=== PATIENT | female | born 1955 ===

== ENCOUNTER 2025-07-29 07:00 | Day surgery (SDC) | payer OTHER ==
[2025-07-29 12:10] LABS: INR 1.1
[2025-07-29] MEDS ORDERED: DIPHENHYDRAMINE HCL 50 MG/ML VIAL 1ML IV ONE (13:45)
[2025-07-29] MEDS ORDERED: fentaNYL CITRATE 50 MCG/ML AMPUL IV PUSH ONE (13:45)
[2025-07-29] MEDS ORDERED: MIDAZOLAM HCL 2 MG/2 ML VIAL IV ONE (13:45)
== END 2025-07-29 15:20 | disposition home or self-care (01) ==
LOC: AMB-ENDOS 07:00
PROVIDERS: ATTEND Surgery
DX: D12.5 Benign neoplasm of sigmoid colon (principal); K62.1 Rectal polyp; Z91.041 Radiographic dye allergy status; K63.5 Polyp of colon

== ENCOUNTER 2025-09-22 12:45 | Inpatient (IN) | payer OTHER ==
[~2025-09-22] VITALS: Ht 160 cm; Wt 117.9 kg
[2025-09-22] MEDS ORDERED: TOPROL XL50 M1 PO (14:16)
[2025-09-22] MEDS ORDERED: XARELTO20 MG PO (14:16)
[2025-09-22] MEDS ORDERED: ARTHRITIS PAIN650 M2 PO (14:17)
[2025-09-22] MEDS ORDERED: LIPITOR20 MG PO (14:17)
[2025-09-22] MEDS ORDERED: HORIZANT300 MG PO (14:17)
[2025-09-26] MEDS ORDERED: CEFTRIAXONE SODIUM 2,000 MG VIAL ONE (12:37)
[2025-09-26] MEDS ORDERED: METRONIDAZOLE/SODIUM CHLORIDE 500 MG/100 ML PIGGYBACK IV ONE (12:37)
[2025-09-26] MEDS ORDERED: LIDOCAINE HCL 1%/EPINEPHRINE 20ML VIAL IJ ONE (16:45)
[2025-09-26] MEDS ORDERED: BUPIVACAINE HCL/PF 0.25% 30ML VIAL InF ONE (16:45)
[2025-09-26] MEDS ORDERED: CHLORHEXIDINE GLUCONATE 120 ML BOTTLE TOP ONE (16:45)
[2025-09-26] MEDS ORDERED: HEMOSTATIC MATRIX 1 KIT KIT TOP ONE (16:45)
[2025-09-26] MEDS ORDERED: OxyCODONE HCL 5 MG TABLET (ROXICODONE) PO PRN (17:30)
[2025-09-26] MEDS ORDERED: RINGERS SOLUTION,LACTATED 1,000 ML IV SCH (17:30)
[2025-09-26] MEDS ORDERED: DEXTROSE 50 % IN WATER 0.5 G/ML DISP.SYRIN IV PRN (17:30)
[2025-09-26] MEDS ORDERED: MORPHINE SULFATE 4 MG/ML CARTRIDGE IV PRN (17:30)
[2025-09-26] MEDS ORDERED: ONDANSETRON HCL 2 MG/ML VIAL IV PRN (17:30)
[2025-09-26] MEDS ORDERED: AMIODARONE HCL 900 MG in DEXTROSE 5 % IN WATER 500 ML IV SCH (18:30)
[2025-09-26] MEDS ORDERED: AMIODARONE HCL 50 MG/ML AMPUL IV ONE (18:30)
[2025-09-26] MEDS ORDERED: SUGAMMADEX SODIUM 200 MG/2 ML VIAL IV ONE (18:45)
[2025-09-26] MEDS ORDERED: ACETAMINOPHEN 500 MG GEL..CAP PO SCH (20:00)
[2025-09-26 20:10] LABS: BUN CREA RATIO 13.0 (7.0-25.0); CREATININE SERUM 0.6 mg/dL (0.55-1.02); GFR 98.55; GLUCOSE FASTING 132.0 mg/dL (65-100); OSMOLALITY SERUM 285.0 MOSM/KG (275-295)
[2025-09-26] MEDS ORDERED: FAMOTIDINE/PF 20 MG/2 ML VIAL IV PUSH SCH (21:00)
[2025-09-26] MEDS ORDERED: FAMOTIDINE/PF 20 MG/2 ML VIAL ONE (22:26)
[2025-09-26 23:13] LABS: BASO % 0.3 % (0.1-1.2); EOS # 0.04 (0.04-0.54); EOS % 0.3 % (0.7-7.0); LYMPH # 1.32 (1.18-3.74); LYMPH % 9.4 % (19.3-53.1); MEAN PLATELET VOLUME 12.90 fl (9.4-12.4); MONO # 1.03 (0.24-0.82); MONO % 7.3 % (4.7-12.5); NEUT # 11.61 (1.56-6.13); NEUT % 82.3 % (34.0-71.1); RED CELL DISTRIBUTION WIDTH 15.1 % (11.6-14.4)
[2025-09-27] MEDS ORDERED: GABAPENTIN 300 MG CAPSULE PO ONE (00:37)
[2025-09-27] MEDS ORDERED: ACETAMINOPHEN 500 MG GEL..CAP PO ONE (00:44)
[2025-09-27] MEDS ORDERED: GABAPENTIN 300 MG CAPSULE PO SCH (01:00)
[2025-09-27 01:34] VITALS: BP 100/65; O2SAT 96
[2025-09-27 07:54] LABS: BASO % 0.2 % (0.1-1.2); EOS # 0.04 (0.04-0.54); EOS % 0.5 % (0.7-7.0); LYMPH # 1.47 (1.18-3.74); LYMPH % 17.1 % (19.3-53.1); MEAN PLATELET VOLUME 12.60 fl (9.4-12.4); MONO # 0.81 (0.24-0.82); MONO % 9.4 % (4.7-12.5); NEUT # 6.23 (1.56-6.13); NEUT % 72.6 % (34.0-71.1); RED CELL DISTRIBUTION WIDTH 15.2 % (11.6-14.4)
[2025-09-27 08:06] LABS: BUN CREA RATIO 11.0 (7.0-25.0); CREATININE SERUM 0.62 mg/dL (0.55-1.02); GFR 94.89; GLUCOSE FASTING 108.0 mg/dL (65-100); OSMOLALITY SERUM 283.0 MOSM/KG (275-295)
[2025-09-27 09:42] VITALS: BP 108/74; O2SAT 97
[2025-09-27 16:42] VITALS: O2SAT 97
[2025-09-27 17:36] VITALS: BP 99/65; O2SAT 96
[2025-09-27 19:16] VITALS: O2SAT 90
[2025-09-27] MEDS ORDERED: METOPROLOL TARTRATE 25 MG TABLET PO SCH (21:00)
[2025-09-27] MEDS ORDERED: AMIODARONE HCL 200 MG TABLET PO SCH (21:00)
[2025-09-28] MEDS ORDERED: ENOXAPARIN SODIUM 40 MG/0.4 ML SYRINGE SUBCUTANEO SCH ×2 (09:00→17:00)
== END 2025-09-27 20:47 | disposition home or self-care (01) | DRG 349 ==
LOC: O/R 09-26 11:00 → SURH 09-26 11:00 → MEDJ 09-26 20:38 → SURH 09-26 22:47
PROVIDERS: ADMIT Surgery; ATTEND Surgery
PROC: 0DBP7ZZ Excision of Rectum, Via Natural or Artificial Opening (ICD-10-PCS; principal; 2025-09-26 14:30)
PROC: 4A12X4Z Monitoring of Cardiac Electrical Activity, External Approach (ICD-10-PCS; 2025-09-27)
DX: D12.8 Benign neoplasm of rectum (principal); D12.6 Benign neoplasm of colon, unspecified; D12.7 Benign neoplasm of rectosigmoid junction; I48.91 Unspecified atrial fibrillation; K62.82 Dysplasia of anus